=== PATIENT | female | born 1980 | race Caucasian/White ===

== ENCOUNTER 2018-06-29 21:29 | Emergency (ER) | payer OTHER ==
[2018-06-29 21:52] VITALS: BP 108/67; PULSE 102; TEMP 98.7; BMI 21.7
--- NOTE | 2018-06-29 22:51 | PDOC ---
History of Present Illness - General Chief Complaint: Nausea/Vomiting Stated Complaint: VOMITING @ 10WKS PREG Time Seen by Provider: 06/29/18 22:49 - History of Present Illness Initial Comments: 06/29/18 22:57 38 yo at 10 wga confirmed by [facility] ( [facility]), LMP 2017, with no significant pmh who p/w vomiting and abdominal pain. Patient reports acute onset of crampy epigastric pain, beginning this AM, with absent radiation to back. Endorses two weeks of intermittent bilious, non bloody emesis with 5+ episodes of emesis today. No identifiable triggers or alleviators. + Decreased PO intake, and appetite. Normal stools, with absent BPR. Patient denies F,C, CP, SOB, urinary complaints, diarrhea, constipation, vaginal bleeding/itching/burning, hematuria, lightheadedness, weakness, sensory changes. PMHx: as noted above. Denies h/o endoscopy, or chronic NSAID use. Surgical: ROS: as noted SHx: Denies Etoh, tobacco, IVDA Allergies: NKDA Ambulance Paramedic: does not follow Past History - Past Medical History Allergies/Adverse Reactions: Allergies Allergy/AdvReac Type Severity Reaction Status Date / Time No Known Allergies Allergy Verified 06/29/18 21:45 Home Medications: Ambulatory Orders Doxylamine Succinate/Vit B6 [Margie Frederick 10-10 mg Tablet] 1 each PO ONCE #30 tablet. MDD 1 tab 06/30/18 Ondansetron HCl [Zofran] 4 mg PO TID PRN #30 tablet MDD 3 tab 06/30/18 COPD: No - Suicide/Smoking/Psychosocial Hx Smoking History: Never smoked Review of Systems - Review of Systems Comments:: 06/29/18 22:57 GENERAL/CONSTITUTIONAL: No fever or chills. No weakness. HEAD, EYES, EARS, NOSE AND THROAT: No change in vision. No ear pain or discharge. No sore throat. CARDIOVASCULAR: No chest pain or shortness of breath RESPIRATORY: No cough, wheezing, or hemoptysis. GASTROINTESTINAL: No nausea, vomiting, diarrhea or constipation. GENITOURINARY: No dysuria, frequency, or change in urination. MUSCULOSKELETAL: No joint or muscle swelling or pain. No neck or back pain. SKIN: No rash NEUROLOGIC: No headache, vertigo, loss of consciousness, or change in strength/ sensation. ENDOCRINE: No increased thirst. No abnormal weight change HEMATOLOGIC/LYMPHATIC: No anemia, easy bleeding, or history of blood clots. ALLERGIC/IMMUNOLOGIC: No hives or skin allergy. *Physical Exam - Vital Signs Last Vital Signs Temp Pulse Resp BP Pulse Ox 98.7 F 102 H 18 108/67 06/29/18 21:45 06/29/18 21:45 06/29/18 21:45 06/29/18 21:45 - Physical Exam Comments: 06/29/18 22:57 GENERAL: Awake, alert, and fully oriented, in no acute distress HEAD: No signs of trauma, normocephalic, atraumatic EYES: PERRLA, EOMI, sclera anicteric, conjunctiva clear ENT: Auricles normal inspection, hearing grossly normal, nares patent, oropharynx clear without exudates. Moist mucosa NECK: Normal ROM, supple, no lymphadenopathy, JVD, or masses LUNGS: No distress, speaks full sentences, clear to auscultation bilaterally HEART: Regular rate and rhythm, normal S1 and S2, no murmurs, rubs or gallops, peripheral pulses normal and equal bilaterally. ABDOMEN: Soft, nontender, normoactive bowel sounds. No guarding, no rebound. No masses EXTREMITIES : Normal inspection, Normal range of motion, no edema. No clubbing or cyanosis. NEUROLOGICAL: Cranial nerves II through XII grossly intact. Normal speech, normal gait, no focal sensorimotor deficits SKIN: Warm, Dry, normal turgor, no rashes or lesions noted ED Treatment Course - LABORATORY CBC & Chemistry Diagram: 06/30/18 01:22 06/30/18 01:22 Medical Decision Making - Medical Decision Making 06/29/18 23:14 38 yo at 10 wga confirmed by [facility] ( [facility]), LMP 2017, with no significant pmh who p/w vomiting and abdominal pain. HR 102, vitals otherwise wnl, AF.+ epigastirc ttp. Likely gastritis or esophagitis, vs. biliary dz, or pancreatitis. Will asses for viable IUP. Low suspicion ectopic , threatened , placenta previa, appendicitis, colitis, AAA. Ed Course: CBC, CMP, T&S, HCG, UA, Urine Cx. [facility] PREG Maloox, Famotidine, Zofran, Carafate, B-6, NS 06/30/18 01:11 [facility]: 10w5d, HR 146 06/30/18 01:11 CBC,CMP: Unremarkable Lipase: Neg test lab error, however [facility] wnl. Zofran sent to pharmacy 06/30/18 02:38 Patient stable for d/c with return precautions. Symptoms resolved. Advised to f/ u with Ambulance Paramedic. *DC/Admit/Observation/Transfer Diagnosis at time of Disposition: Nausea and vomiting during - Discharge Dispostion Condition at time of disposition: Stable Decision to Admit order: No - Prescriptions Prescriptions: Doxylamine Succinate/Vit B6 [Margie Dr 10-10 mg Tablet] 1 each PO ONCE #30 tablet. MDD 1 tab Ondansetron HCl [Zofran] 4 mg PO TID PRN #30 tablet MDD 3 tab PRN Reason: Nausea And/Or Vomiting - Referrals Referrals: Santos Nava MD [Staff Physician] - - Patient Instructions Printed Discharge Instructions: DI for Nausea -- Adult Additional Instructions: Please return to the emergency department with any new or worsening symptoms or concerns. Please follow up with your primary care physician or Ambulance Paramedic within 72 hours.Please take zofran as needed. - Post Discharge Activity - Attestations Physician Attestion: 06/29/18 22:58 I attest to the information provided in this note.
[2018-06-29] MEDS ORDERED: ONDANSETRON 4 MG/2 ML VIAL IVPUSH ONE (23:07)
[2018-06-29] MEDS ORDERED: MAG HYDROX/AL HYDROX/SIMETH 30 ML UNIT-DOSE CUP PO ONE (23:07)
[2018-06-29] MEDS ORDERED: ACETAMINOPHEN 1000 MG/100 ML VIAL (NON FORMULARY) IVPB ONE (23:07)
[2018-06-29] MEDS ORDERED: SODIUM CHLORIDE 1,000 ML IV STA (23:07)
[2018-06-29] MEDS ORDERED: FAMOTIDINE 20 MG/50 ML IVPB 20 MG/50 ML MG IVPB ONE ×2 (23:07→23:29)
[2018-06-29] MEDS ORDERED: PYRIDOXINE HCL (B-6) 100 MG TABLET PO ONE (23:08)
[2018-06-29] MEDS ORDERED: MAG HYDROX/AL HYDROX/SIMETH 30 ML UNIT-DOSE CUP ONE (23:28)
[2018-06-29] MEDS ORDERED: ACETAMINOPHEN INJECTION 100 ML IVPB ONE (23:28)
[2018-06-29] MEDS ORDERED: ONDANSETRON 4 MG/2 ML VIAL ONE (23:29)
--- NOTE | 2018-06-29 23:33 | PDOC ---
Attending Attestation - HPI HPI: 06/29/18 23:35 The patient is a 38 year old female, 10 weeks , , LMP April 15, with no significant past medical history, who presents to the emergency department with epigastric pain and vomiting for about 2 weeks. SHe states she has increased emesis today to about 5 episodes. The patient denies chest pain, shortness of breath, headache and dizziness. The patient denies fever, chills, diarrhea and constipation. The patient denies dysuria, frequency, urgency and hematuria. Allergies: NKDA - Physicial Exam PE: 06/29/18 23:36 GENERAL: Well-appearing, well-nourished. +In mild distress. HEENT: Normocephalic, atraumatic. PERRL, EOM intact. CARDIOVASCULAR: +Slightly tachycardic. Normal S1, S2. Regular rhythm. PULMONARY: Clear to auscultation bilaterally. ABDOMEN: Soft, non-distended, non-tender. EXTREMITIES: Normal ROM in all four extremities. No gross deformities. SKIN: Warm, dry. No rash NEUROLOGICAL: No focal neurological deficits. - Medical Decision Making 06/29/18 23:36 Documentation prepared by Mary Moran, acting as medical office administrator for Sandra Espino MD 06/30/18 01:09 EXAM: Ultrasound obstetric TRANSVAGINAL US PREG HISTORY: Assess for intrauterine gestation COMPARISON: None. FINDINGS: There is a single intrauterine gestation. Estimated gestational age is 10 weeks and 5 days. cardiac activity is documented at 146 bpm. Left ovary measures 3.1 x 2.7 x 2.0 cm. Doppler imaging demonstrates positive vascular flow. The right ovary is not visualized Yosi Gan MD 06/30/2018 01:00 EST <Mary Moran - Last Filed: 06/30/18 01:09> - Resident Resident Name: Vladimir Temple - ED Attending Attestation I have performed the following: I have examined & evaluated the patient, The case was reviewed & discussed with the resident, I agree w/resident's findings & plan, Exceptions are as noted - HPI HPI: 06/29/18 23:32 38-year-old female who is 10 weeks p/w vomiting - Medical Decision Making pt given anti-emetics and IVF -pelvic US obtained labs: here cbc and chemistries wnl 06/30/18 00:05 06/30/18 01:15 IMP hyperemesis gravidarum,first trimester plan follow up with hospitality aide 06/30/18 02:34 <Sandra Espino - Last Filed: 06/30/18 02:35>
[2018-06-30] MEDS ORDERED: PYRIDOXINE HCL (B-6) 50 MG TABLET (FP) PO ONE (01:00)
[2018-06-30 01:38] LABS: BASO % 0.5 % (0-2.0); HEMATOCRIT 38.4 % (32.4-45.2); HEMOGLOBIN 12.7 GM/dL (10.7-15.3); LYMPH % 14.8 % (8-40); MCH 26.7 pg (25.7-33.7); MCHC 33.1 g/dl (32.0-36.0); MEAN CELL VOLUME 80.9 fl (80-96); MONO % 5.4 % (3.8-10.2); NEUT % 79.3 % (42.8-82.8); PLATELET COUNT 255 K/MM3 (134-434); RBC 4.75 M/mm3 (3.60-5.2); RDW 13.3 % (11.6-15.6); WHITE BLOOD COUNT 7.8 K/mm3 (4.0-10.0)
[2018-06-30 02:11] LABS: INR 1.06 (0.83-1.09); PROTHROMBIN TIME (PATIENT) 12.5 SEC (9.7-13.0)
[2018-06-30 02:12] LABS: ALBUMIN 3.7 g/dl (3.4-5.0); ALK PHOS 64 U/L (45-117); ANION GAP 12 MMOL/L (8-16); BILIRUBIN,TOTAL 1.1 mg/dL (0.2-1); BLOOD UREA NITROGEN 13 mg/dL (7-18); CALCIUM 8.8 mg/dL (8.5-10.1); CHLORIDE 103 mmol/L (98-107); CO2 21 mmol/L (21-32); CREATININE 0.6 mg/dL (0.55-1.3); GLUCOSE,RANDOM 74 mg/dL (74-106); POTASSIUM 3.6 mmol/L (3.5-5.1); SGOT/AST 27 U/L (15-37); SGPT/ALT 75 U/L (13-61); SODIUM 136 mmol/L (136-145); TOT PROT 7.4 g/dl (6.4-8.2)
[2018-06-30 03:01] LABS: URINE APPEARANCE SLCLOUDY; URINE BILIRUBIN NEGATIVE (<2.0 mg/dL); URINE COLOR AMBER; URINE GLUCOSE (UA) NEGATIVE (NEGATIVE); URINE KETONE 2+ (NEGATIVE); URINE LEUK ESTERASE NEGATIVE (NEGATIVE); URINE NITRITE NEGATIVE (NEGATIVE)
[2018-06-30 03:02] LABS: URINE PROTEIN 1+ (NEGATIVE)
[2018-06-30 03:03] LABS: HCG,QUALITATIVE URINE Positive
[2018-06-30 03:04] LABS: EPI CELLS FEW /HPF (FEW); URINE BACTERIA RARE /hpf (NONE SEEN); URINE MUCUS MANY
[2018-06-30] MEDS ORDERED: ONDANSETRON 4 MG/2 ML VIAL ONE (03:49)
[2018-06-30] MEDS ORDERED: ONDANSETRON 4 MG/2 ML VIAL IVPUSH ONE (03:54)
[2018-06-30] MEDS ORDERED: SUCRALFATE 1 GM TABLET (FP) PO ONE (23:07)
== END 2018-06-30 04:09 | disposition home or self-care (01) ==
LOC: JER 21:29
PROC: 3E033GC Introduction of Other Therapeutic Substance into Peripheral Vein, Percutaneous Approach (ICD-10-PCS; principal; 2018-06-29)
PROC: 3E033GC Introduction of Other Therapeutic Substance into Peripheral Vein, Percutaneous Approach (ICD-10-PCS; 2018-06-29)
PROC: 3E033GC Introduction of Other Therapeutic Substance into Peripheral Vein, Percutaneous Approach (ICD-10-PCS; 2018-06-29)
PROC: 3E033NZ Introduction of Analgesics, Hypnotics, Sedatives into Peripheral Vein, Percutaneous Approach (ICD-10-PCS; 2018-06-29)
DX: O26.891 Other specified pregnancy related conditions, first trimester (principal); O21.0 Mild hyperemesis gravidarum; Z3A.10 10 weeks gestation of pregnancy
CPT/HCPCS: 36415; 76817-TC; 80053; 81003; 81015; 83690; 84702; 84703; 85025; 85610; 86850; 86900; 86901; 87086; 99281-25; 99283-25; J0131; J7030